=== PATIENT | male | born 1995 | race Caucasian/White ===

== ENCOUNTER 2016-08-13 19:03 | Emergency (ER) | payer OTHER ==
[~2016-08-13] VITALS: Ht 175.3 cm; Wt 165.0 kg
[2016-08-13 19:14] VITALS: BP 119/70; PULSE 83; RESP 21; O2SAT 96
--- NOTE | 2016-08-13 20:38 | ED.REPORT ---
HPI-General Illness Date of Service Aug 13, 2016 ED Provider: Tanner Mcginnis PA-C Vipin is an otherwise healthy 21-year-old male presenting with a chief complaint of a laceration. He reports cutting his left thumb 3 hours ago with a sharp kitchen knife. Denies numbness, tingling, reduced range of motion. He reports his last tetanus shot was less than a year ago. Denies comorbidities such as diabetes, HIV or immunosuppressive drugs. Nursing Notes Stated Complaint: LEFT THUMB INJURY Chief Complaint: Extremity Trauma Nursing Notes Reviewed: Yes Allergies: Coded Allergies: amoxicillin (Verified Allergy, Unknown, 08/13/16) penicillin G (Verified Allergy, Unknown, 08/13/16) No Active Prescriptions or Reported Meds General Time Seen by MD: 20:04 Chief Complaint Laceration Past Medical History Past Medical History Patient denies Review of Systems Negative unless stated otherwise in history of present illness Physical Exam General: Well appearing, well developed, well nourished, no acute distress. Left thumb: Possibly 370 laceration across the ulnar aspect of the first phalanx. This is well visualized, no indication of foreign bodies or involvement of ligaments. Full strength and range of motion in the MCP and PIP joints. Sensation is intact in both the radial and ulnar aspect of the distal phalanx. Brisk capillary refill is intact. Radial pulse 2+ Head: Atraumatic, normocephalic. Eyes: No scleral icterus or injection. No discharge. Vision grossly intact. ENT: Voice clear, hearing grossly intact. Respiratory: No respiratory distress, no increased work of breathing. Speaks in complete sentences. Skin: Warm and dry. Neurological: Grossly nonfocal. Psychological: alert and oriented. Speech appropriate, linear and logical. Behavior appropriate. Vital Signs Vital Signs Date Time Temp Pulse Resp B/P Pulse Ox O2 Delivery O2 Flow Rate FiO2 08/13/16 21:30 36.6 58 16 121/78 99 Room Air 08/13/16 19:14 37.1 83 21 119/70 96 Room Air Normal Procedures Laceration Management Procedure Performed by: Allied health pract Consent / Setup / Site Prep: Informed consent provided, Hand hygiene observed, Stand sterile technique Wound Length: 3 cm Local Anesthesia: Bupivacaine 0.5% Digit Involved: Thumb left Wound Preparation: Hibiclens - Chlorhexidine, Normal saline Debridement: None Irrigation: 250 cc Foreign Body Explore / Removal: Explored for foreign body Repair Skin: Nylon (5-0) # Sutures - Skin: 8 Closure Layers: 1 Suture Technique: Simple Post-Procedure / Complications: Antibiotic oint applied, Dressing applied, No complications, Condition improved, Tolerated procedure well, Patient stable Re-Eval/Medical Decision Med Decision/Clinical Course Otherwise healthy 21-year-old male presents a laceration to his left thumb from a sharp kitchen knife. Tetanus up-to-date, denies comorbidities. Neurovascularly intact, no indication of damage to ligaments. Laceration is well -visualized with no foreign bodies noted. Digital block is performed using 5 mL's of bupivacaine 0.5% delivered via 27- gauge needle. Good anesthesia is obtained and the wound is thoroughly cleansed. Closed in 1 layer with 8 simple interrupted nylon 50 sutures. Dressed with antibiotic ointment and gauze. Patient tolerated the procedure well, no complications. I see no indication for antibiotics at this time as the wound is clean and the patient healthy. Advised regarding wound care, primary care follow-up. Provide emergent return precautions. Patient verbalizes understanding of and consented to plan. Discharge & Departure Primary Impression: Laceration Disposition: Home Discharge Condition All VS Reviewed: Yes Condition: Stable Patient Instructions: Laceration (ED) Additional Instructions: Evaluation in the emergency department for a laceration. This appears to be a clean wound, with no damage to the joint capsule or tendons. I see no indication for antibiotics at this time. you have told me that you are up-to-date on your tetanus shot. We have cleaned, sutured and dressed the wound with antibiotic ointment and gauze. Please leave this dressing on and dry for the next 24 hours. After that you can remove the dressing, clean with soap and water and then reapply antibiotic ointment and gauze or Band-Aid. Please do not submerge the wound as in washing dishes, swimming or soaking in a tub for 2 weeks after you have the sutures removed. The pain is best treated with 400 mg of ibuprofen (Advil, Motrin) every 6 hours , or 1000 mg of acetaminophen (Tylenol) every 6 hours. These drugs can be taken at the same time for more severe pain. Be vigilant for signs of infection. While a small amount of redness, tenderness and clear or pink drainage is normal, any increasing pain, redness, swelling or the appearance of pus suggests infection. More severe infection as suggested by symptoms such as fever, chills, feeling ill, racing heart. Please return to emergency Department if you notice signs of infection. Follow-up with your primary care provider or return to the emergency department in 7 days for suture removal. [facility]errals: [facility] Provider for [facility]: Jack Brady MD, Seth PA-C Aug 13, 2016 20:38
[2016-08-13 21:30] VITALS: BP 121/78; PULSE 58; RESP 16; O2SAT 99
== END 2016-08-13 21:30 | disposition home or self-care (01) ==
LOC: SED 19:03
DX: S61.012A Laceration without foreign body of left thumb without damage to nail, initial encounter (principal); W26.0XXA Contact with knife, initial encounter; Y93.9 Activity, unspecified; Y92.9 Unspecified place or not applicable; Y99.0 Civilian activity done for income or pay; Z88.0 Allergy status to penicillin